=== PATIENT | male | born 1940 | race Asian ===

== ENCOUNTER 2017-04-25 06:10 | Day surgery (SDC) | payer MEDICARE, OTHER ==
[~2017-04-25] VITALS: Ht 147.3 cm; Wt 49.5 kg
[~2017-04-25 06:10] MED LIST: ALBU8.5H8 IH; CIPR-278 PO; PRED10TA3 PO
[2017-04-25] MEDS ORDERED: LIDOCAINE HCL 4% 50 ML SOLUTION TP ONE (06:11)
[2017-04-25] MEDS ORDERED: BENZOCAINE 20% 50 MCG/SPRAY 57 GM TP ONE (06:11)
[2017-04-25] MEDS ORDERED: LIDOCAINE HCL 2% 5 ML JELLY TP ONE (06:11)
[2017-04-25] MEDS ORDERED: SODIUM CHLORIDE 0.9% 1,000 ML IV ONE ×2 (06:33→07:00)
[2017-04-25] MEDS ORDERED: BUDE10.2 IH (06:58)
[2017-04-25] MEDS ORDERED: AMOX250C4 PO (06:58)
[2017-04-25] MEDS ORDERED: SIMV-260 PO (06:58)
[2017-04-25] MEDS ORDERED: CYPR4TAB35 PO (06:58)
[2017-04-25] MEDS ORDERED: GUAI120S25 PO (06:58)
[2017-04-25] MEDS ORDERED: DIPH25 PO (06:58)
[2017-04-25] MEDS ORDERED: ASCO500 PO (06:58)
[2017-04-25] MEDS ORDERED: MULT-12 PO (06:58)
[2017-04-25] MEDS ORDERED: METO50 PO (06:58)
[2017-04-25] MEDS ORDERED: MIDAZOLAM HCL 2 MG/2 ML VIAL ONE (07:38)
[2017-04-25] MEDS ORDERED: FentaNYL CITRATE-PF 100 MCG/2 ML VIAL ONE (07:38)
[2017-04-25] MEDS ORDERED: MethylPREDNISolone SOD SUCC 125 MG/2 ML VIAL IVP ONE (08:45)
[2017-04-25] MEDS ORDERED: MethylPREDNISolone SOD SUCC 125 MG/2 ML VIAL ONE (09:03)
[2017-04-25] MEDS ORDERED: OXYGEN THERAPY IH SCH (20:00)
== END 2017-04-25 10:50 | disposition home or self-care (01) ==
LOC: SURGERY 06:10
PROVIDERS: ATTEND Internal Medicine Critical Care Medicine
DX: J38.4 Edema of larynx (principal); B37.0 Candidal stomatitis; J84.111 Idiopathic interstitial pneumonia, not otherwise specified; J44.9 Chronic obstructive pulmonary disease, unspecified; K21.9 Gastro-esophageal reflux disease without esophagitis; Z79.899 Other long term (current) drug therapy
CPT/HCPCS: 31623; 31624; 71045; 87015; 87070; 87077; 87186; 87205; 87220; 88108; 88312; J2250; J2930; J3010; J7030